=== PATIENT | male | born 1990 | race Caucasian/White ===

== ENCOUNTER 2016-07-11 20:38 | Emergency (ER) ==
[2016-07-11 20:54] VITALS: BP 132/80
[2016-07-11] MEDS ORDERED: NUBAIN IM ONE (21:30)
[2016-07-11] MEDS ORDERED: PHENERGAN IM ONE (21:30)
[2016-07-11] MEDS ORDERED: BENADRYL PO ONE (21:30)
--- NOTE | 2016-07-11 21:36 | PROVIDER DOCUMENTATION ---
HPI-General Adult - General Chief Complaint: Headache Stated Complaint: MIGRAINE Time Seen by Provider: 07/11/16 21:14 Source: patient Allergies/Adverse Reactions: Patient Allergies Allergy/AdvReac Type Severity Reaction Status Date / Time No Known Allergies Allergy Verified 07/11/16 20:54 Home Medications: Home Medication List Medication Instructions Recorded Confirmed Last Taken Type Atenolol [Tenormin] 50 mg PO DAILY #30 tablet 07/11/16 Unknown Rx - History of Present Illness -Gen Adult Nature of Presenting Problems: Pt. is 25 yom that presents with c/o Migraine SALMON. Pt. reports he has had a SALMON since 06/27/16. Pt. reports he has a Hx of migraines and reports he is nauseated with the light hurting his eyes. Pt. denies any other symptoms at this time. Location of Pain/Injury: reports: head. denies: face, mouth, neck, chest, upper extremity, hand(s), abdomen, back, pelvis, genitalia, lower extremity, feet, upper body, lower body, generalized Pain Radiation: reports: no radiation Quality of Pain: reports: aching. denies: burning, cramping, dull, fullness, indigestion, pressure, sharp, stabbing, tearing, throbbing, tightness Severity: reports: moderate. denies: mild, severe Onset/Duration: reports: gradual, other (Two weeks) Timing: reports: still present, changing over time, getting worse. denies: improving, gone now, resolved prior to arrival, intermittent, constant Context/Activities at Onset: reports: none. denies: recent emotional stress, recent physical stress, recent trauma history, possible bad food, cold exposure , out of country travel Modifying Factors: improves with: nothing Associated Symptoms: reports: headaches, nausea. denies: anxiety, arm pain, back/neck pain, chest pain, constipation, cough, diaphoresis, diarrhea, dizziness, EENT symptoms, fatigue, fever/chills, genitourinary problems, heartburn, joint pain, loss of appetite, malaise, muscle aches, sinus congestion /drainage, rash, seizure, shortness of breath, sensory/motor loss, pain with inspiration, swelling/mass in abdomen, syncope, vomiting, weakness, trouble walking Similar Symptoms Previously?: Yes Recently seen or treated by another doctor?: No Review of Systems - Adult - REVIEW OF SYSTEMS - ADULT Constitutional: reports: see HPI. denies: chills, fever, fatique Eyes: reports: see HPI, blurred vision. denies: discharge, double vision Ears, Nose, Mouth & Throat: reports: see HPI. denies: ear discharge, ear pain, hearing loss, sinus problem, nose pain, loose teeth, mouth/dental pain, throat pain, throat swelling Cardiovascular: reports: see HPI. denies: chest pain, irregular heart rate, orthopnea, syncope Respiratory: reports: see HPI. denies: chronic cough, cough, dyspnea on exertion, pleurisy, shortness of breath, wheezing Gastrointestinal: reports: see HPI, nausea. denies: abdominal pain, difficulty swallowing, frequent heartburn, rectal bleeding, vomiting Genitourinary: reports: see HPI. denies: dysuria, discharge, hematuria, hesitency, urgency Musculoskeletal: reports: see HPI. denies: bone pain, back pain, joint pain, muscle aches, neck pain Integumentary: reports: see HPI. denies: hives, hair loss, itching, rash, skin thickening Neurological: reports: see HPI, headache/migraines. denies: ataxia, dizziness/ vertigo, numbness, paresthesia, seizure, tremors Psychiatric: reports: see HPI. denies: anxiety, depression, emotional problems , insomnia, panic attacks, suicidal thoughts Past History - Adult - PAST MEDICAL HISTORY-ADULT Review of Records: reports: Old Records Reviewed, Nursing Assessment Review, Medications Reviewed, Social history reviewed & non-contributory. - IMMUNIZATION STATUS Childhood Immunizations: See Nurse Assessment Flu Vaccine: See Nurse Assessment - FAMILY HISTORY Family History: reviewed, not pertinent - SOCIAL HISTORY Smoking: cigarettes, greater than 1 pack/day Provider spent 3-5 mins advising pt. on dangers of tobacco.: Discussed the need to stop smoking. Physical Exam-General - PHYSICAL EXAM-ADULT Initial Vital Signs Reviewed: Yes - CONSTITUTIONAL General Appearance: alert, mild distress. negative: anxious, lethargic, slow to respond, obtunded, combative - EYES Eyes: PERRL/EOMI, pink conjunctivae, photophobia. negative: conjuctival exudate , scleral icterus, subconjunctival hemorrhage - HEAD, EARS, NOSE, MOUTH & THROAT HENMT: normocephalic/atraumatic, moist mucous membranes. negative: angioedema, frontal tenderness, maxillary tenderness - NECK Neck: non-tender, full range of motion, supple, normal inspection. negative: lymphadenopathy, trachial deviation, thyromegaly - RESPIRATORY Respiratory: lungs clear, normal breath sounds. negative: crackles, rales, rhonchi, stridor, wheezing - CARDIOVASCULAR Cardiovascular: normal peripheral pulses, regular rate, rhythm, no edema, no JVD , no murmur. negative: extra beats, friction rub, irregularly irregular - CHEST (BREASTS) Chest/Breast: deferred - GASTROINTESTINAL (ABDOMEN) Abdominal Exam: normal bowel sounds, non tender, soft. negative: distended, guarding, rigid, rebound, tenderness, hernia, mass - GENITOURINARY Male Genitalia: deferred Rectal Exam: deferred Hemoccult Exam: deferred - LYMPHATIC Lymphatic: no adenopathy. negative: axilla node tender, cervical node tenderness - MUSCULOSKELETAL Back Exam: normal inspection, no CVA tenderness. negative: ecchymosis, swelling , vertebral tenderness Extremity: normal range of motion, non-tender, normal gait, normal inspection. negative: deformity, erythema, inflammation, swelling, tenderness Peripheral Pulses: radial (R): 2+, radial (L): 2+ - SKIN Integumentary: normal color, normal turgor, warm/dry. negative: cyanosis, diaphoresis, ecchymosis, erythema, jaundice, mottled, pallor, petechiae, purpura , rash, swelling, tenderness - NEUROLOGIC Neurologic: grossly normal, no motor/sensory deficits. negative: aphasia, facial droop, focal weakness, motor weakness, sensory deficit - PSYCHIATRIC Psych/Mental Status: normal mood/affect, normal thought content, normal thought process, oriented x 3. negative: anxious, paranoid, tearful Progress - PLAN OF CARE/RESULTS Progress/Plan/Lab Results: Discussed results and plan of care with patient. Patient agrees with plan and verbalizes understanding. Vital Signs Temp Pulse Resp BP Pulse Ox 07/11/16 20:51 98 F 100 H 18 132/80 98 No Known Allergies Allergy (Verified 07/11/16 20:54) Atenolol [Tenormin] 50 mg PO DAILY #30 tablet 07/11/16 Orders Category Date Time Status Diphenhydramine [Benadryl] Med 07/11/16 21:30 Discontinued 50 mg PO NOW ONE Nalbuphine [Nubain] Med 07/11/16 21:30 Discontinued 10 mg IM NOW ONE Promethazine [Phenergan] Med 07/11/16 21:30 Discontinued 25 mg IM NOW ONE Departure - Departure Time of Disposition Order: 21:31 DIAGNOSIS: Encounter for medication refill Migraine Qualifiers: Migraine type: unspecified Status migrainosus presence: without status migrainosus Intractability: not intractable Qualified Code(s): G43.909 - Migraine, unspecified, not intractable, without status migrainosus Disposition: HOME 01 Certified Medical Emergency: Emergent Condition: Stable Additional Instructions: Follow up with primary care physician Take medications as directed Rest in a cool dark room Return to ED for any concerns or worsening of symptoms ED Follow Up Instructions: You have been treated by a care provider in the Emergency Department. These instructions are being provided to you so you can have an understanding of how to care for yourself upon discharge. Upon discharge from the Emergency Department, you are responsible for making arrangements for follow-up care by a physician of your choice. Take all prescribed medications as directed. Return to the Emergency Department immediately for any new or worsening symptoms. You may call the Physician Referral phone number at [phone] to obtain a list of Physicians who are taking new patients. Prescriptions: Atenolol [Tenormin] 50 mg PO DAILY #30 tablet Attestation - Physician/ GENEVA Attestation Patient care was provided by Advanced Practice Provider:: Yes Advanced Practice Provider:: Efrain Berry Advanced Practice Provider documentation review:: The Mid-level provider documentation, treatment plan and medical decision making was reviewed by the physician who agrees with all treatment and medical decision making by the MLP.
[2016-07-11] MEDS ORDERED: BENADRYL ONE (21:42)
== END 2016-07-11 22:05 | disposition home or self-care (01) ==
LOC: P.ED 20:38
DX: G43.909 Migraine, unspecified, not intractable, without status migrainosus (principal); R51 Headache; R11.0 Nausea; H53.8 Other visual disturbances; H53.149 Visual discomfort, unspecified; F17.210 Nicotine dependence, cigarettes, uncomplicated; Z76.0 Encounter for issue of repeat prescription; Z71.6 Tobacco abuse counseling
CPT/HCPCS: 96372; J2300; J2550

== ENCOUNTER 2016-08-06 11:16 | Emergency (ER) ==
[2016-08-06 11:22] VITALS: BP 146/74
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
--- NOTE | 2016-08-06 12:43 | Diag Imaging Result Document ---
PROCEDURE NAME: WRIST COMPLETE LEFT - 08/06/2016 LEFT WRIST, 3 VIEWS: COMPARISON: None. FINDINGS: There are metallic foreign bodies in the distal forearm soft tissues. In the dorsal tissue, there are 2 linear objects measuring about 1 cm. At the volar soft tissue, there is an irregular curvilinear object measuring about 2 cm. No soft tissue gas. No fractures. IMPRESSION: Apparent soft tissue foreign bodies.
== END 2016-08-06 12:00 | disposition home or self-care (01) ==
LOC: P.ED 11:16
DX: S63.502A Unspecified sprain of left wrist, initial encounter (principal); M79.5 Residual foreign body in soft tissue; M25.532 Pain in left wrist; M25.432 Effusion, left wrist; F17.210 Nicotine dependence, cigarettes, uncomplicated; Z71.6 Tobacco abuse counseling; W20.8XXA Other cause of strike by thrown, projected or falling object, initial encounter